=== PATIENT | female | born 1985 | race Caucasian/White ===

== ENCOUNTER 2018-10-30 11:50 | Outpatient (CLI) | payer OTHER | END 2018-10-30 11:51 | disposition home or self-care (01) | LOC: LAB 11:50 | PROVIDERS: ATTEND Obstetrics & Gynecology | DX: Z01.812 Encounter for preprocedural laboratory examination (principal); N94.6 Dysmenorrhea, unspecified; N94.10 Unspecified dyspareunia ==

== ENCOUNTER 2018-11-01 06:13 | Inpatient (IN) | payer OTHER ==
[2018-10-30 12:16] LABS: BASOPHILS # (AUTO) 0.1 10^3/uL (0.0-0.1); BASOPHILS % (AUTO) 0.8 %; EOSINOPHILS # (AUTO) 0.3 10^3/uL (0.0-0.7); EOSINOPHILS % (AUTO) 5.2 %; HGB - HEMOGLOBIN 14.2 g/dL (12.0-16.0); LYMPHOCYTES # (AUTO) 1.8 10^3/uL (1.5-3.5); LYMPHOCYTES % (AUTO) 30.8 %; MEAN CORPUSCULAR HEMOGLOBIN 28.6 pg (27.0-31.0); MEAN CORPUSCULAR HGB CONC 34.3 g/dL (32.0-36.0); MEAN CORPUSCULAR VOLUME 83.3 fL (81.0-99.0); MEAN PLATELET VOLUME 7.8 fL (7.9-10.8); MONOCYTES # (AUTO) 0.6 10^3/uL (0.0-1.0); MONOCYTES % (AUTO) 9.5 %; NEUTROPHILS # (AUTO) 3.2 10^3/uL (1.5-6.6); NEUTROPHILS % (AUTO) 53.7 %; PLT - PLATELET COUNT 237 10^3/uL (130-450); RED BLOOD COUNT 4.97 10^6/uL (4.20-5.40); RED CELL DISTRIBUTION WIDTH 13.3 % (12.0-15.0); WHITE BLOOD COUNT 5.9 x10^3/uL (4.8-10.8)
[2018-10-30 12:18] LABS: BILIRUBIN,URINE NEGATIVE (NEGATIVE); GLUCOSE, URINE (UA) NEGATIVE (NEGATIVE); KETONES,URINE (UA) NEGATIVE (NEGATIVE); LEUKOCYTE ESTERASE, URINE NEGATIVE (NEGATIVE); NITRITE,URINE NEGATIVE (NEGATIVE); OCCULT BLOOD,URINE TRACE-INTA (NEGATIVE); PROTEIN,URINE NEGATIVE (NEGATIVE); UROBILINOGEN,URINE 0.2 (NORMAL) E.U./dL (NORMAL)
[2018-10-30 12:21] LABS: CLARITY,URINE CLEAR (CLEAR); HCG UR QUAL NEGATIVE
[2018-10-30 12:28] LABS: CALCIUM 9.6 mg/dL (8.5-10.3); CREATININE 0.7 mg/dL (0.4-1.0)
[2018-11-01] MEDS ORDERED: LACTATED RINGERS 1,000 ML IV ONE ×2 (06:33→10:48)
--- NOTE | 2018-11-01 07:13 | ANESTHESIA ---
Pre-Anesthesia VS, & Labs - Diagnosis uterine bleeding, dysmenorrhea, dyspareunia - Procedure laparoscopic assist vaginal hysterectomy Vital Signs: Temp Pulse Resp BP Pulse Ox 37.1 C 89 12 134/94 H 97 11/01/18 06:34 11/01/18 06:34 11/01/18 06:34 11/01/18 06:34 11/01/18 06:34 Height 5 ft 6 in Weight (kg) 107.2 kg - NPO >8 hours - Is Patient ?: Waiver signed - Lab Results Current Lab Results: Laboratory Tests 10/30/18 12:05: Blood Type O POSITIVE, Antibody Screen NEGATIVE 10/30/18 12:05: WBC 5.9, RBC 4.97, Hgb 14.2, Hct 41.4, MCV 83.3, MCH 28.6, MCHC 34.3, RDW 13.3, Plt Count 237, MPV 7.8 L, Neut # (Auto) 3.2, Lymph # (Auto) 1.8, Divide # (Auto) 0.6, Eos # (Auto) 0.3, Baso # (Auto) 0.1, Absolute Nucleated RBC 0.00, Nucleated RBC % 0.0 10/30/18 12:05: Sodium 138, Potassium 3.7, Chloride 107, Carbon Dioxide 25, Anion Gap 6.0, BUN 15, Creatinine 0.7, Estimated GFR (MDRD) 97, Glucose 86, Calcium 9.6 Lab results reviewed: Yes Fish Bones: 10/30/18 12:05 10/30/18 12:05 Home Medications and Allergies Allergies/Adverse Reactions: Allergies Allergy/AdvReac Type Severity Reaction Status Date / Time amoxicillin Allergy Intermediate Rash Verified 10/29/18 12:44 Penicillins Allergy Rash Verified 10/29/18 12:44 Anes History & Medical History - Anesthetic History Anesthesia Complications: reports: No previous complications Family history of Anesthesia Complications: Denies Family history of Malignant Hyperthermia: Denies - Medical History Cardiovascular: reports: None Pulmonary: reports: None Gastrointestinal: reports: None Urinary: reports: None Musculoskeletal: reports: None Endocrine/Autoimmune: reports: None Skin: reports: None - Surgical History Eyes Ears Nose Throat (EENT): Tonsil/Adenoidectomy Gynecologic: section Exam General: Alert, Oriented x3, Cooperative, No acute distress Dental: WNL Mouth Openin Fingerbreadth Neck Mobility: Normal Mallampati classification: II Thyromental Distance: greater than 6 cm Respiratory: Lungs clear, Normal breath sounds, No respiratory distress, No accessory muscle use Cardiovascular: Regular rate, Normal S1, Normal S2, No murmurs Mental/Cognitive Status: Alert/Oriented X3, Normal for patient Plan Anesthesia Type: General Consent for Procedure(s) Verified and Reviewed: Yes Code Status: Attempt Resuscitation ASA classification: 1-Healthy patient Is this case an emergency?: No
[2018-11-01] MEDS ORDERED: ceFAZolin 2 GM/50 ML 2 GM/50 ML BAG IV ONE ×2 (07:36→08:42)
[2018-11-01] MEDS ORDERED: BUPIVACAINE 0.25% PF 10 ML VIAL ONE (07:40)
[2018-11-01] MEDS ORDERED: LIDOCAINE 1%-EPI 1:100000 30 ML MDV ONE (07:40)
[2018-11-01] MEDS ORDERED: BUPIVACAINE 0.25% PF 30 ML VIAL SUBQ ONE ×2 (08:30)
[2018-11-01] MEDS ORDERED: PROPOFOL 200 MG/20 ML VIAL IVP ONE (08:42)
[2018-11-01] MEDS ORDERED: LIDOCAINE-MPF 2% 5 ML VIAL IM ONE (08:42)
[2018-11-01] MEDS ORDERED: fentaNYL 250 MCG/5 ML VIAL IVP ONE (08:42)
[2018-11-01] MEDS ORDERED: ACETAMINOPHEN 1,000 MG/100 ML 100 ML IV ONE (08:42)
[2018-11-01] MEDS ORDERED: ONDANSETRON 4 MG/2 ML VIAL IVP ONE (08:42)
[2018-11-01] MEDS ORDERED: KETOROLAC 30 MG/ML VIAL IVP ONE (08:42)
[2018-11-01] MEDS ORDERED: ROCURONIUM 50 MG/5 ML VIAL IVP ONE (08:42)
[2018-11-01] MEDS ORDERED: LIDOCAINE MPF 1%-EPI 1:200000 30 ML VIAL SUBQ ONE ×2 (08:50)
[2018-11-01] MEDS ORDERED: ONDANSETRON 4 MG/2 ML VIAL IVP PRN (10:41)
[2018-11-01] MEDS ORDERED: SIMETHICONE CHEW 80 MG TABLET PO PRN (10:41)
--- NOTE | 2018-11-01 10:51 | OPERATIVE REPORT ---
Operative Report - General Admit Date: 11/01/18 Procedure Date: 11/01/18 Planned Procedure: Laparoscopic-assisted vaginal hysterectomy, bilateral salpingectomies Pre-Op Diagnosis: Abnormal uterine bleeding, dysmenorrhea, dyspareunia Procedure Performed: Laparoscopic-assisted vaginal hysterectomy, left salpingectomy, fulguration of endometriosis Post Op Diagnosis: Endometriosis - Procedure Note Primary Surgeon: Dr. Augusta Mccauley Secondary Surgeon: Dr. Scotty Govea Anesthesia Provider: Dr. Duane Hoyos Anesthesia Technique: General ET tube, Local Pathology: Uterus, cervix, and left fallopian tube IV Fluids (mL): 800 Estimated Blood Loss (mL): 100 Urine Output (mL): 175 Drain/Tube Type: Other (Espinoza catheter) Complications: None - Other Other Information/Narrative: Indication: The patient is a 33-year-old 3 para 2 abortus 1 female here for hysterectomy for definitive surgical management of bothersome abnormal uterine bleeding, dysmenorrhea, and dyspareunia. The couple is using vasectomy for contraception and have completed their childbearing. She has had heavy, painful periods for the last 1-1/2 years. Prior to that, her periods were 4-5 days along with normal flow and minimal cramping. Her periods are still regular and monthly, but now last from 7-10 days; and for the first 5 days she needs to change both a tampon and pad every 30 minutes, including 3-4 times at night. Bleeding produces large clots and severe cramps, for which nonsteroidal anti-i nflammatory medications are not much help. She also gets intermittent cramping outside of her cycle, which is not associated with spotting. Also, for the last year and a half, sex has been painful from beginning to end and causes cramps for several days afterwards. She has no history of abuse, and she feels safe at home. She had an endometrial biopsy, that was benign, and an ultrasound, which was normal. She has had a negative experience with hormonal contraception in the past and does not wish to go that route for treatment. She feels like hysterectomy is her best management option. The alternatives for mgmt of her symptoms were discussed, and the patient desired to proceed with a hysterectomy. Risks, benefits, limitations, alternatives, and expectations or surgery were discussed, and the consent was reviewed and signed prior to the date of surgery. Findings: Exam under anesthesia: Uterus anteverted and mildly fixed within the pelvic anteriorly, 7 wks size, with no adnexal masses palpable. Surgery: Mildly dense bladder adhesions present at the anterior lower uterine segments (site of incision). No other pelvic adhesions were noted. Dark endometriosis lesions noted throughout the pelvis - 3 at the left lower quadrant, anterior peritoneum; several within the cul-de-sac, one within the right ovarian fossa, and one on the right ovarian vessels. At the completion of the surgery, the ureters were visualized and appeared clear of the dissection. They peristalsed bilaterally. The appendix was visualized and appeared normal. Procedure: The patient was taken to the operating room, where general endotracheal anesthesia was administered without difficulty. She was then positioned with her lower extremities in yellow-fin stirrups. Exam under anesthesia was then performed with the findings as noted above. Perineum, vagina, and abdomen were then prepped and draped in sterile fashion, and a espinoza catheter was placed. Time out was then performed. Attention was first turned to placement of a uterine manipulator. A sterile bivalve speculum was inserted, and the cervix grasped with a single-toothed tenaculum. The cervix was then dilated until a HUMI uterine manipulator could be placed and balloon inflated. The tenaculum and speculum were then removed. Attention was then turned to the laparoscopy. 0.25% Marcaine, plain, was injected infraumbilically, then a 7-mm vertical skin incision made. A Verrees needle was then inserted through the anterior layers of the abdominal wall with saline drop test suggesting intraperitoneal placement. Carbon dioxide gas insufflation was then performed with appropriate opening pressures noted. Once 2 L of gas was instilled, a 0-degree, 5 mm laparoscope was inserted into a 5 mm trocar and passed through the anterior layers of the abdominal wall using Optiview technique. The abdomen was visualized, then 2 additional ports placed at the right and left lower quadrants, first instilling local anesthetic then placing 5 mm ports. The patient was placed into Trendelenberg and bowel swept out of the cul-de-sac. The left distal fallopian tube was grasped and pulled anteriorly while the left tubo-ovarian ligament was cross-clamped, cauterized, and cut using the PlasmaKinetic. This incision was then extended medially across the mesosalpinx until the cornual region was reached. The left round ligament was then cross- clamped, cauterized, and cut, then the anterior leaf of the broad ligament undermined, cauterized, and cut starting the bladder flap dissection on the left. This dissection was carried until the midline lower uterine segment, where the bladder adhesion became denser. The left utero-ovarian pedicle was then cross-clamped, cauterized, and cut, then this incision extended into the peritoneum inferiorly. The left uterine vessels were then skeletonized, cross- clamped, cauterized, and cut. Attention was then turned to the right side, where the dissection was completed in similar fashion. Here the right fallopian tube was already surgically-absent, so attention directed to the right round ligament then right utero--ovarian vessels. The bladder flap was extended to the midline, where density increased. The right uterine vessels were cauterized and cut. The bladder adhesions dissected with bovie cautery and gentle downward traction. Any bleeding was controlled with cautery. The trocars were left in situ, as well as the majority of the gas, while attention was turned to the vaginal portion of the case. The lower extremities were elevated to high lithotomy, the uterine manipulator was removed, and a sterile weighted speculum placed. The cervix was grasped with a double-toothed tenaculum, then 1% Lidocaine with epinephrine was injected circumferentially for hemostasis. A circumferential incision was then made with cauterization. The posterior cul-de-sac was then entered sharply, and an Auvard speculum placed after tagging the midline posterior peritoneum. The left, then right, uterosacral ligament was cross-clamped, cut, and suture-ligated with 0 vicryl. These were tagged for later identification. The anterior cul-de-sac was then entered bluntly using a moist sponge and the jumpbasting machine operator's finger. One additional pedicle was secured on each side, then the uterus, cervix, and tubes removed vaginally. The peritoneum was then closed with a purse-string suture of 0 vicryl, then the vaginal cuff was irrigated with sterile saline. The vaginal mucosa was then closed with serial figure of eight sutures of 0 vicryl. A small tag of right vaginal tissue was caught in the cuff closure then sharply freed. Two figure of eight sutures of 0 vicryl were placed to achieve hemostasis at the right vaginal wall. A sponge stick was placed, and attention returned to laparoscopy to visualize the cuff for bleeding. The lower extremities were replaced into low lithotomy. Gas was instilled again, and the dissection sites noted to have only minimal bleeding, none of which required cauterization. Copious irrigation was performed. The ureters were visualized and peristalsed. The remaining endometriosis lesions at the left lower quadrant, cul-de-sac, and right ovarian fossa were fulgurated using cauterization. At this point the procedure was deemed complete. The gas was allowed to escape, and the trocars removed. The incisions were then closed with 4-0 monocryl in a subcuticular fashion followed by Dermabond. The sponge stick was removed from the vagina. The patient was then replaced supine, awakened, extubated, and transferred to the PACU in stable condition. There were no complications. Sponge, lap, and needle count were correct x 3.
[2018-11-01] MEDS ORDERED: MEPERIDINE 50 MG/ML VIAL ONE (10:55)
[2018-11-01] MEDS: KETOROLAC 30 MG/ML VIAL IVP SCH ×3 (11:55→22:02)
[2018-11-01] MEDS: LACTATED RINGERS 1,000 ML IV SCH ×2 (11:56→18:51)
[2018-11-01] MEDS ORDERED: DOCUSATE SODIUM 100 MG CAPSULE PO SCH (12:00)
[2018-11-01] MEDS: MORPHINE 10 MG/ML VIAL IVP PRN ×2 (12:46→16:12)
[2018-11-01] MEDS ORDERED: SODIUM CHLORIDE FLUSH 0.9% 10 ML SYRINGE ONE (16:09)
[2018-11-01] MEDS ORDERED: METOCLOPRAMIDE 10 MG/2 ML VIAL IVP PRN (16:42)
[2018-11-01] MEDS: DOCUSATE SODIUM 100 MG CAPSULE PO SCH (22:02)
[2018-11-02] MEDS: oxyCODONE 5 MG TABLET PO PRN ×2 (04:21→10:01)
[2018-11-02] MEDS: KETOROLAC 30 MG/ML VIAL IVP SCH (04:25)
[2018-11-02 05:39] LABS: BASOPHILS % (AUTO) 0.3 %; EOSINOPHILS # (AUTO) 0.1 10^3/uL (0.0-0.7); EOSINOPHILS % (AUTO) 1.8 %; HGB - HEMOGLOBIN 12.5 g/dL (12.0-16.0); LYMPHOCYTES # (AUTO) 1.6 10^3/uL (1.5-3.5); LYMPHOCYTES % (AUTO) 23.7 %; MEAN CORPUSCULAR HEMOGLOBIN 28.8 pg (27.0-31.0); MEAN CORPUSCULAR HGB CONC 33.5 g/dL (32.0-36.0); MEAN PLATELET VOLUME 7.5 fL (7.9-10.8); MONOCYTES # (AUTO) 0.5 10^3/uL (0.0-1.0); MONOCYTES % (AUTO) 7.9 %; NEUTROPHILS # (AUTO) 4.6 10^3/uL (1.5-6.6); NEUTROPHILS % (AUTO) 66.3 %; PLT - PLATELET COUNT 203 10^3/uL (130-450); RED BLOOD COUNT 4.34 10^6/uL (4.20-5.40); RED CELL DISTRIBUTION WIDTH 13.6 % (12.0-15.0); WHITE BLOOD COUNT 6.9 x10^3/uL (4.8-10.8)
[2018-11-02 07:47] VITALS: BP 116/69
--- NOTE | 2018-11-02 08:01 | DISCHARGE SUMMARY ---
"Discharge Summary Admit Date: 11/01/18 Discharge Date: 11/02/18 Discharging Provider: Dr. Augusta Mccauley Code Status: Attempt Resuscitation Condition at Discharge: Good Discharge Disposition: 01 Home, Self Care - DIAGNOSES Admission Diagnoses: Abnormal uterine bleeding, dysmenorrhea, dyspareunia Discharge Diagnoses with Status of Each Condition: ADELE, endometriosis, s/p hysterectomy - HPI History of Present Illness: See admission H&P - CONSULTS | PROCEDURES Procedures: Laparoscopic-assisted vaginal hysterectomy, left salpingectomy, fulguration of endometriosis - HOSPITAL COURSE Hospital Course: After an uncomplicated surgery, the patient was admitted to the postanesthesia care unit and then the villa in stable condition. Overnight, she had normal and stable vital signs, and her pain was well controlled with Toradol and morphine. However, she had notable nausea and vomiting. This was later controlled with Zofran and Reglan. Her Cao catheter was removed on postoperative day #1, and she met her due to void without any problem. On postoperative day #1, she was ambulating, tolerating regular diet, controlling pain with oral pain medication, and feeling ready for discharge. Her vital signs were normal and stable during her hospital stay. - ALLERGIES Allergies/Adverse Reactions: Allergies Allergy/AdvReac Type Severity Reaction Status Date / Time amoxicillin Allergy Intermediate Rash Verified 10/29/18 12:44 Penicillins Allergy Rash Verified 10/29/18 12:44 - MEDICATIONS Home Medications: Ambulatory Orders Medication Instructions Recorded Confirmed Aspirin/Acetaminophen/Caffeine 1 each PO BID 11/01/18 11/01/18 [Excedrin Migraine Caplet] Home Medications Other | Comments: Patient has discharge postop medications already: Percocet 1-2 tabs po q 6 hrs prn pain Motrin 800 mg po q 8 hrs prn pain Surfak 1 tab po bid prn constipation - PHYSICAL EXAM AT DISCHARGE General Appearance: positive: No acute distress, Alert Eyes Bilateral: positive: Normal inspection Respiratory: positive: No respiratory distress, Breath sounds nml Cardiovascular: positive: Regular rate & rhythm, No murmur Abdomen: positive: Nml bowel sounds, No distention, Tenderness (Appropriate tenderness present), Other (Incisions: LSC x 3 well-approximated with no separation, discharge, or induration. 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
--- NOTE | 2018-11-02 08:05 | Discharge Plan ---
Discharge Plan Disposition: 01 Home, Self Care Condition: Good Diet: Regular Activity Restrictions: See handout Shower Restrictions: No Driving Restrictions: Yes (OK to drive once pain-free off narcotic pain meds) No Smoking: If you smoke, Please STOP! Call for help. Follow-up with: Femi Huber MD [Primary Care Provider] -
[2018-11-02] MEDS: DOCUSATE SODIUM 100 MG CAPSULE PO SCH (10:01)
== END 2018-11-02 10:54 | disposition home or self-care (01) | DRG 743 ==
LOC: MS2 06:13
PROVIDERS: ADMIT Obstetrics & Gynecology; ATTEND Obstetrics & Gynecology
PROC: 0U594ZZ Destruction of Uterus, Percutaneous Endoscopic Approach (ICD-10-PCS; 2018-11-01)
PROC: 0U5F4ZZ Destruction of Cul-de-sac, Percutaneous Endoscopic Approach (ICD-10-PCS; 2018-11-01)
PROC: 0U504ZZ Destruction of Right Ovary, Percutaneous Endoscopic Approach (ICD-10-PCS; 2018-11-01)
PROC: 0UT6FZZ Resection of Left Fallopian Tube, Via Natural or Artificial Opening With Percutaneous Endoscopic Assistance (ICD-10-PCS; principal; 2018-11-01 07:30)
DX: N80.3 Endometriosis of pelvic peritoneum (principal); N80.1 Endometriosis of ovary; Z88.0 Allergy status to penicillin; Z90.79 Acquired absence of other genital organ(s); Z79.82 Long term (current) use of aspirin
CPT/HCPCS: 36415; 80048; 81001; 81003; 81025; 85025; 86850; 86900; 86901

== ENCOUNTER 2019-12-18 21:16 | Emergency (ER) | payer OTHER ==
[2019-12-18 21:39] LABS: BILIRUBIN,URINE NEGATIVE (NEGATIVE); GLUCOSE, URINE (UA) NEGATIVE (NEGATIVE); KETONES,URINE (UA) NEGATIVE (NEGATIVE); LEUKOCYTE ESTERASE, URINE TRACE (NEGATIVE); NITRITE,URINE NEGATIVE (NEGATIVE); OCCULT BLOOD,URINE LARGE (NEGATIVE); PROTEIN,URINE NEGATIVE (NEGATIVE); UROBILINOGEN,URINE 0.2 (NORMAL) E.U./dL (NORMAL)
[2019-12-18 21:40] LABS: CLARITY,URINE HAZY (CLEAR)
[2019-12-18 21:41] LABS: HCG UR QUAL NEGATIVE
[2019-12-18 21:49] LABS: BACTERIA,URINE None Seen /HPF (None Seen); SQUAMOUS EPITHELIAL CELL,UR NONE SEEN (<= Few)
--- NOTE | 2019-12-18 22:29 | ED Physician Documentation ---
PD HPI CHEST PAIN - Stated complaint Stated Complaint: BK/ABD PX - Chief complaint Chief Complaint: Abd Pain - Additional information Additional information: Patient comes emergency department complaining of left flank pain that started earlier today and has been coming on and off throughout the day. Patient states that she noticed cloudy urine yesterday, but otherwise, no urinary abnormalities. No dysuria or frequency. No gross hematuria. Patient denies any fevers or chills. No nausea or vomiting. The patient states that she had a hysterectomy a year ago and does not have her fallopian tubes, either. She states she does have both of her ovaries. The patient states she has not felt ill. She has no known history of kidney stones. She states that she is otherwise fairly healthy. No other complaints at this time. Review of Systems Ten Systems: 10 systems reviewed and negative Constitutional: reports: Reviewed and negative Eyes: reports: Reviewed and negative Ears: reports: Reviewed and negative Nose: reports: Reviewed and negative Throat: reports: Reviewed and negative Cardiac: reports: Reviewed and negative Respiratory: reports: Reviewed and negative GI: reports: Abdominal Pain : reports: Reviewed and negative Skin: reports: Reviewed and negative Musculoskeletal: reports: Back pain Neurologic: reports: Reviewed and negative Psychiatric: reports: Reviewed and negative Endocrine: reports: Reviewed and negative Immunocompromised: reports: Reviewed and negative PD PAST MEDICAL HISTORY - Past Medical History Past Medical History: Yes Cardiovascular: None Respiratory: None Neuro: Migraines Endocrine/Autoimmune: None GI: None 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 : None HEENT: None Psych: None Musculoskeletal: None Derm: None - Past Surgical History Past Surgical History: Yes /VACUUM DRIER TENDER: section, Hysterectomy, Other HEENT: Tonsil/Adenoidectomy - Present Medications Home Medications: Ambulatory Orders Medication Instructions Recorded Confirmed Aspirin/Acetaminophen/Caffeine 1 each PO BID 11/01/18 11/01/18 [Excedrin Migraine Caplet] Hydrocodone/Acetaminophen 1 - 2 each PO Q6H PRN #14 tablet 12/18/19 [Hydrocodon-Acetaminophen 5-325] Tamsulosin [Flomax] 0.4 mg PO DAILY #7 capsule 12/18/19 - Allergies Allergies/Adverse Reactions: Allergies Allergy/AdvReac Type Severity Reaction Status Date / Time amoxicillin Allergy Intermediate Rash Verified 12/18/19 21:21 Penicillins Allergy Rash Verified 12/18/19 21:21 - Social History Does the pt smoke?: No Smoking Status: Never smoker Does the pt drink ETOH?: No Does the pt have substance abuse?: No - Immunizations Immunizations are current?: Yes - POLST Patient has POLST: No PD ED PE NORMAL - Vitals Vital signs reviewed: Yes - General General: Alert and oriented X 3, No acute distress - HEENT HEENT: PERRL - Neck Neck: Supple, no meningeal sign - Cardiac Cardiac: RRR, No murmur - Respiratory Respiratory: Clear bilaterally - Abdomen Abdomen: Soft, Non distended, Other (Moderate tenderness left upper quadrant and left flank.) - Back Back: Other (Moderate left CVA tenderness.) - Derm Derm: Warm and dry - Extremities Extremities: No deformity - Neuro Neuro: Alert and oriented X 3 - Psych Psych: Normal mood, Normal affect Results - Vitals Vitals: Vital Signs - 24 hr 12/18/19 12/18/19 21:21 23:14 Temperature 36.5 C 36.9 C Heart Rate 110 H 97 Respiratory 14 16 Rate Blood Pressure 151/99 H 141/96 H O2 Saturation 96 98 Oxygen O2 Source Room air - Labs Labs: Laboratory Tests 12/18/19 21:28 Urine Color YELLOW Urine Clarity HAZY Urine pH 6.0 Ur Specific [place] 1.020 Urine Protein NEGATIVE Urine Glucose (UA) NEGATIVE Urine Ketones NEGATIVE Urine Occult Blood LARGE H Urine Nitrite NEGATIVE Urine Bilirubin NEGATIVE Urine Urobilinogen 0.2 (NORMAL) Ur Leukocyte Esterase TRACE H Urine RBC 11-25 H Urine WBC 0-3 Ur Squamous Epith Cells NONE SEEN Urine Bacteria None Seen Ur Microscopic Review INDICATED Urine Culture Comments INDICATED Urine HCG, Qual NEGATIVE - Rads (name of study) CT KUB Radiology: Final report received, Discussed with rads, EMP read indepedently, See rad report (Radiologist interpretation: Mild left hydronephrosis to the level of an obstructing 6 mm calculus in the proximal ureter; other nonobstructing bilateral renal calculi; Tiny calcified gallstones; mild atelectasis.) PD MEDICAL DECISION MAKING - ED course Complexity details: reviewed old records, reviewed results, re-evaluated patient, considered differential, d/w patient ED course: Patient was worked up with urinalysis, which showed a large amount of blood and mild amount of leukocyte esterase, but otherwise negative. I felt she should be worked up for kidney stone, as well, as her urinalysis was not convincing for infection, particularly one which would cause the degree of symptoms the pt was having, and showed a significant amount of blood. Patient was sent for CT scan of the abdomen and pelvis without contrast. This did show a 6 mm calculus in the left proximal ureter. I discussed with the patient that this will most likely pass on its own, but I have advised her to follow-up with scheduled urology and [place] if symptoms have not improved over the next week. I have given the patient a take-home pack of Vicodin, as well as a prescription for Vicodin and for Flomax. Patient at this time is feeling fairly comfortable and she is stable for discharge home. We have discussed the usual indications for return. Departure - Departure Disposition: Home, Self Care Clinical Impression: Kidney stone Condition: Fair Instructions: ED Stone Renal W Colic Prescriptions: Hydrocodone/Acetaminophen [Hydrocodon-Acetaminophen 5-325] 1 - 2 each PO Q6H PRN #14 tablet PRN Reason: pain Tamsulosin [Flomax] 0.4 mg PO DAILY #7 capsule Comments: Your CT scan shows a 6 mm kidney stone that is passing through your left ureter, the tube that connects the kidney to the bladder. This will most likely pass on its own, but will cause discomfort while it does.If you do not notice improvement in your symptoms or passage of the stone in the next week, please make an appointment to follow-up with urology. Otherwise, most kidney stones at this size will pass on their own, given time. [facility] [place]: [phone] Forms: Activity restrictions Discharge Date/Time: 12/18/19 23:26
--- NOTE | 2019-12-18 22:55 | CT Report ---
Reason: L flank pain, hematuria Procedure Date: 12/18/2019 Accession Number: [id number] / [id number] Procedure: CT - Abdomen/Pelvis WO CPT Code: Final Report FULL RESULT: EXAM: CT ABDOMEN AND PELVIS (CT KUB) EXAM DATE: 12/18/2019 10:35 PM. CLINICAL HISTORY: L flank pain, hematuria. COMPARISONS: None. TECHNIQUE: Routine helical CT imaging was performed through the abdomen and pelvis without intravenous contrast. Lack of intravenous contrast can at times limit scan sensitivity, particularly for the detection of intraparenchymal and vascular pathology. Reconstructions: Coronal and sagittal. In accordance with CT protocol optimization, one or more of the following dose reduction techniques were utilized for this exam: automated exposure control, adjustment of mA and/or KV based on patient size, or use of iterative reconstructive technique. FINDINGS: ABDOMEN: Lung Bases: Incompletely included lower lungs demonstrate scattered atelectasis. Heart size is within normal limits. No basilar effusions. Liver: Unremarkable. Gallbladder/Bile Ducts: Tiny calcified gallstone. Visualized biliary tree is normal caliber. Spleen: Unremarkable. Pancreas: Unremarkable. Adrenal Glands: Unremarkable. Kidneys: Right kidney: No hydronephrosis. 1 mm calculus in the right inferior kidney. Left kidney: A couple of left inferior renal calculi measuring up to 7 mm. Mild left hydronephrosis to the level of an obstructing 6 mm calculus in the proximal ureter. Peritoneum/Mesentery/Bowel: No free fluid, free air, or collection. No intestinal obstruction or inflammation. The appendix is within normal limits. Lymph nodes: No mesenteric, periportal, or retroperitoneal lymphadenopathy. PELVIS: The bladder is unremarkable for the degree of distention. Uterus is absent. No pelvic lymphadenopathy. Retroperitoneum: Abdominal aorta is nonaneurysmal. Bones: No suspicious osseous lesions. Grade 1 anterolisthesis of L5 on S1 with severe degenerative disk disease. IMPRESSION: Obstructing 6 mm calculus in the proximal left ureter. Other nonobstructing bilateral renal calculi. Tiny calcified gallstones. RADIA
[2019-12-18] MEDS ORDERED: HYDROcod/ACET 5/325 Prepack 4 PO STA (23:11)
[2019-12-18 23:15] VITALS: BP 141/96
== END 2019-12-18 23:26 | disposition home or self-care (01) ==
LOC: ED 21:16
DX: N13.2 Hydronephrosis with renal and ureteral calculous obstruction (principal)
CPT/HCPCS: 74176; 81001; 81003; 81025; 87086; 99284

== ENCOUNTER 2020-09-18 17:32 | Emergency (ER) | payer OTHER ==
[2020-09-18 17:57] LABS: BILIRUBIN,URINE NEGATIVE (NEGATIVE); GLUCOSE, URINE (UA) NEGATIVE (NEGATIVE); KETONES,URINE (UA) NEGATIVE (NEGATIVE); LEUKOCYTE ESTERASE, URINE NEGATIVE (NEGATIVE); NITRITE,URINE NEGATIVE (NEGATIVE); OCCULT BLOOD,URINE NEGATIVE (NEGATIVE); PROTEIN,URINE NEGATIVE (NEGATIVE); UROBILINOGEN,URINE 0.2 (NORMAL) E.U./dL (NORMAL)
[2020-09-18 18:02] LABS: CLARITY,URINE CLOUDY (CLEAR)
[2020-09-18 18:05] LABS: BASOPHILS # (AUTO) 0.1 10^3/uL (0.0-0.1); BASOPHILS % (AUTO) 0.8 %; EOSINOPHILS # (AUTO) 0.3 10^3/uL (0.0-0.7); EOSINOPHILS % (AUTO) 3.4 %; HCT - HEMATOCRIT 44.8 % (37.0-47.0); HGB - HEMOGLOBIN 15.3 g/dL (12.0-16.0); LYMPHOCYTES # (AUTO) 2.4 10^3/uL (1.5-3.5); LYMPHOCYTES % (AUTO) 28.9 %; MEAN CORPUSCULAR HEMOGLOBIN 30.1 pg (27.0-31.0); MEAN CORPUSCULAR HGB CONC 34.2 g/dL (32.0-36.0); MEAN CORPUSCULAR VOLUME 88.2 fL (81.0-99.0); MEAN PLATELET VOLUME 9.1 fL (7.9-10.8); MONOCYTES # (AUTO) 0.7 10^3/uL (0.0-1.0); MONOCYTES % (AUTO) 8.4 %; NEUTROPHILS # (AUTO) 4.9 10^3/uL (1.5-6.6); NEUTROPHILS % (AUTO) 58.4 %; PLT - PLATELET COUNT 257 10^3/uL (130-450); RED BLOOD COUNT 5.08 10^6/uL (4.20-5.40); RED CELL DISTRIBUTION WIDTH 11.9 % (12.0-15.0); WHITE BLOOD COUNT 8.5 x10^3/uL (4.8-10.8)
[2020-09-18 18:13] LABS: BACTERIA,URINE Few /HPF (None Seen); RBC,URINE None Seen /HPF (0-5); SQUAMOUS EPITHELIAL CELL,UR MOD Squamous (<= Few); WBC,URINE 0-3 /HPF (0-5)
[2020-09-18 18:14] LABS: AMORPHOUS SEDIMENT,UR Moderate /LPF; MUCUS,URINE Few Strands; YEAST,URINE PRESENT
[2020-09-18 18:16] LABS: ALBUMIN 4.5 g/dL (3.2-5.5); ALBUMIN/GLOBULIN RATIO 1.4 (1.0-2.2); BILIRUBIN,TOTAL 0.5 mg/dL (0.2-1.0); CALCIUM 9.6 mg/dL (8.5-10.3); CREATININE 0.8 mg/dL (0.4-1.0); POTASSIUM 3.4 mmol/L (3.5-5.0); TOTAL PROTEIN 7.7 g/dL (6.7-8.2)
[2020-09-18] MEDS ORDERED: IOVERSOL 320 100 ML VIAL IVP ONE ×2 (18:42→18:55)
--- NOTE | 2020-09-18 18:42 | ED Physician Documentation ---
PD HPI ABD PAIN - Stated complaint Stated Complaint: ABD PX & RIGHT SIDED PX - Chief complaint Chief Complaint: Abd Pain - History obtained from History obtained from: Patient - History of Present Illness Timing - onset: Today Timing - duration: Days (1) Timing - details: Gradual onset Pain level max: 7 Pain level now: 6 Quality: Aching, Pain Location: RLQ Radiation: No: Chest, , Lower back, Left flank, Left shoulder, Right flank, Right shoulder, Upper back Improved by: Other (rest) Worsened by: Moving, Palpation Associated symptoms: Other (has had hysterectomy). No: Fever, Nausea, Vomiting, Hematemesis, Diarrhea, Constipation, Melena, Hematochezia, Dysuria, Hematuria, Vaginal bleeding, Vaginal dc Recently seen: Not recently seen Review of Systems Constitutional: denies: Fever, Chills Respiratory: denies: Cough GI: denies: Nausea, Hematemesis, Bloody / black stool : denies: Dysuria Skin: denies: Rash Musculoskeletal: denies: Neck pain, Back pain Neurologic: denies: Headache PD PAST MEDICAL HISTORY - Past Medical History Past Medical History: Yes Cardiovascular: None Respiratory: None Neuro: Migraines Endocrine/Autoimmune: None GI: None ADMIN DIR: Endometriosis, Ectopic : None HEENT: None Psych: None Musculoskeletal: None Derm: None - Past Surgical History Past Surgical History: Yes /ADMIN DIR: section, Hysterectomy, Other HEENT: Tonsil/Adenoidectomy - Present Medications Home Medications: Ambulatory Orders Medication Instructions Recorded Confirmed Aspirin/Acetaminophen/Caffeine 1 each PO BID PRN 11/01/18 09/18/20 [Excedrin Migraine Caplet] Amitriptyline [Elavil] 25 mg PO HS 09/18/20 09/18/20 - Allergies Allergies/Adverse Reactions: Allergies Allergy/AdvReac Type Severity Reaction Status Date / Time amoxicillin Allergy Intermediate Rash Verified 09/18/20 17:35 Penicillins Allergy Rash Verified 09/18/20 17:35 - Social History Does the pt smoke?: No Smoking Status: Never smoker Does the pt drink ETOH?: No Does the pt have substance abuse?: No - Immunizations Immunizations are current?: Yes - POLST Patient has POLST: No PD ED PE NORMAL - Vitals Vital signs reviewed: Yes - General General: Alert and oriented X 3, No acute distress, Well developed/nourished - HEENT HEENT: Moist mucous membranes - Neck Neck: Supple, no meningeal sign - Cardiac Cardiac: RRR, Strong equal pulses - Respiratory Respiratory: No respiratory distress, Clear bilaterally - Abdomen Abdomen: Soft, Non distended, Other (TTP RLQ at mcburney's point.) - Back Back: No CVA TTP, No spinal TTP - Derm Derm: Warm and dry - Extremities Extremities: No edema - Neuro Neuro: Alert and oriented X 3 - Psych Psych: Normal mood, Normal affect Results - Vitals Vitals: Vital Signs - 24 hr 09/18/20 09/18/20 09/18/20 17:36 18:08 18:09 Temperature 37.1 C Heart Rate 105 H 106 H 100 Respiratory 18 18 16 Rate Blood Pressure 152/91 H 157/93 H 157/93 H O2 Saturation 99 99 100 09/18/20 19:42 Temperature 37.2 C Heart Rate 88 Respiratory 16 Rate Blood Pressure 140/82 H O2 Saturation 100 Oxygen O2 Source Room air - Labs Labs: Laboratory Tests 09/18/20 09/18/20 09/18/20 17:45 17:55 17:55 WBC 8.5 RBC 5.08 Hgb 15.3 Hct 44.8 MCV 88.2 MCH 30.1 MCHC 34.2 RDW 11.9 L Plt Count 257 MPV 9.1 Neut # (Auto) 4.9 Lymph # (Auto) 2.4 [place] # (Auto) 0.7 Eos # (Auto) 0.3 Baso # (Auto) 0.1 Absolute Nucleated RBC 0.00 Nucleated RBC % 0.0 Sodium 143 Potassium 3.4 L Chloride 105 Carbon Dioxide 26 Anion Gap 12.0 BUN 10 Creatinine 0.8 Estimated GFR (MDRD) 82 L Glucose 114 H Calcium 9.6 Total Bilirubin 0.5 AST 30 ALT 42 Alkaline Phosphatase 95 Total Protein 7.7 Albumin 4.5 Globulin 3.2 Albumin/Globulin Ratio 1.4 Lipase 32 Urine Color YELLOW Urine Clarity CLOUDY Urine pH 7.0 Ur Specific [place] 1.020 Urine Protein NEGATIVE Urine Glucose (UA) NEGATIVE Urine Ketones NEGATIVE Urine Occult Blood NEGATIVE Urine Nitrite NEGATIVE Urine Bilirubin NEGATIVE Urine Urobilinogen 0.2 (NORMAL) Ur Leukocyte Esterase NEGATIVE Urine RBC None Seen Urine WBC 0-3 Ur Squamous Epith Cells MOD Squamous H Amorphous Sediment Moderate Urine Bacteria Few Urine Mucus Few Strands Urine Yeast PRESENT Ur Microscopic Review INDICATED Urine Culture Comments NOT INDICATED - Rads (name of study) CT abdomen and pelvis Radiology: Prelim report reviewed, EMP read contemporaneously, See rad report (IMPRESSION: Nonobstructive bilateral sub-5 mm nonobstructive nephrolithiasis. Normal appendix ) PD MEDICAL DECISION MAKING - ED course Complexity details: reviewed results, re-evaluated patient, considered differential, d/w patient ED course: 35-year-old female with abdominal pain. Unclear etiology. We will have her follow-up with her doctor for further care. Pain well controlled in the emergency department. Patient counseled regarding signs and symptoms for which I believe and urgent re-evaluation would be necessary. Patient with good un derstanding of and agreement to plan and is comfortable going home at this time This document was made in part using voice recognition software. While efforts are made to proofread this document, sound alike and grammatical errors may occur. Departure - Departure Disposition: 01 Home, Self Care Clinical Impression: Abdominal pain Qualifiers: Abdominal location: unspecified location Qualified Code(s): R10.9 - Unspecified abdominal pain Condition: Good Instructions: ED Abdominal Pain Unkn Cause Follow-Up: your,doctor in 1 week [Other] Comments: The cause of your symptoms is unclear. There are no significant lab abnormalities, CT scan abnormalities at this time. Your appendix is normal. Return if you worsen. This should improve over the next 24 hours. Discharge Date/Time: 09/18/20 19:44
--- NOTE | 2020-09-18 19:05 | CT Report ---
PROCEDURE: Abdomen/Pelvis W INDICATIONS: RLQ abd pain CONTRAST: IV CONTRAST: Optiray 320 ml: 100 PO CONTRAST: *NO PO CONTRAST TECHNIQUE: After the administration of IV contrast, 5 mm thick sections acquired from the diaphragms to the symp hysis. 5 mm thick coronal and sagittal reformats were acquired. For radiation dose reduction, the f ollowing was used: automated exposure control, adjustment of mA and/or kV according to patient size. COMPARISON: None. FINDINGS: Image quality: Excellent. ABDOMEN: Lung bases: Lung bases are clear. Heart size is normal. Solid organs: Liver and spleen are normal in size and enhancement. Gallbladder unremarkable Biliar y system is non dilated. Pancreas enhances normally. No adrenal nodules. 1 mm right renal calculus. 3 mm left renal calculus. No hydronephrosis. Peritoneum and bowel: Bowel loops demonstrate normal w all thickness and caliber. No free fluid or air. Normal appearance of the appendix Nodes and vessels: No retroperitoneal or mesenteric adenopathy by size criteria. Aorta and inferior vena cava are normal in size. There is broad-based midline laxity of the ventral abdominal wall PELVIS: Genitourinary: Bladder wall thickness is normal. Miscellaneous: No inguinal hernias or adenopathy. Bones: No suspicious bony lesions. No vertebral body compression fractures. IMPRESSION: Nonobstructive bilateral sub-5 mm nonobstructive nephrolithiasis Normal appendix Reviewed by: Fan Lee MD on 09/18/2020 7:04 PM PST Approved by: Fan Lee MD on 09/18/2020 7:04 PM PST Station ID: [id number]
[2020-09-18 19:43] VITALS: BP 140/82
== END 2020-09-18 19:44 | disposition home or self-care (01) ==
LOC: ED 17:32
DX: R10.31 Right lower quadrant pain (principal); N20.0 Calculus of kidney; Z90.710 Acquired absence of both cervix and uterus; Z79.82 Long term (current) use of aspirin
CPT/HCPCS: 36415; 74177; 80053; 81001; 83690; 85025; 99284; Q9967; 81003; 87086

== ENCOUNTER 2020-09-21 10:49 | Emergency (ER) | payer OTHER ==
--- NOTE | 2020-09-21 11:08 | ED Physician Documentation ---
PD HPI ABD PAIN - Stated complaint Stated Complaint: ABD PX - Chief complaint Chief Complaint: Abd Pain - History obtained from History obtained from: Patient - History of Present Illness Timing - onset: How many days ago (3-4) Timing - duration: Days (3-4) Timing - details: Gradual onset, Still present, Waxing and waning Quality: Cramping, Aching, Pain Location: RLQ Radiation: No: Lower back, Right flank Improved by: Laying still. No: Eating, BM Worsened by: Position, Palpation. No: Eating, Moving, Breathing Associated symptoms: Nausea. No: Fever, Vomiting, Diarrhea, Constipation, Dysuria, Chest pain, Vaginal bleeding Similar symptoms before: Has not had sx before Recently seen: Emergency Dept (2 days ago with labs and CT without clear Dx. Has had increased pain now to middle and some to left since prior visit.) Review of Systems Constitutional: denies: Fever, Chills, Myalgias Nose: denies: Rhinorrhea / runny nose, Congestion Throat: denies: Sore throat Cardiac: denies: Chest pain / pressure Respiratory: denies: Cough GI: reports: Abdominal Pain, Nausea. denies: Vomiting, Constipation, Diarrhea : denies: Dysuria, Frequency, Discharge, Vaginal bleeding Skin: denies: Rash, Lesions PD PAST MEDICAL HISTORY - Past Medical History Cardiovascular: None Respiratory: None Neuro: Migraines Endocrine/Autoimmune: None GI: None [employer]: Endometriosis, Ectopic : None HEENT: None Psych: None Musculoskeletal: None Derm: None - Past Surgical History Past Surgical History: Yes /[employer]: section, Hysterectomy, Other HEENT: Tonsil/Adenoidectomy - Present Medications Home Medications: Ambulatory Orders Medication Instructions Recorded Confirmed Aspirin/Acetaminophen/Caffeine 1 each PO BID PRN 11/01/18 09/21/20 [Excedrin Migraine Caplet] Amitriptyline [Elavil] 25 mg PO HS 09/18/20 09/21/20 Docusate Sodium 100Mg Capsule 100 mg PO DAILY #15 capsule 09/21/20 [Colace 100Mg Capsule] HYDROcod/ACETAM 5/325 [[place] 5/325] 1 ea PO Q6H PRN #18 tablet 09/21/20 Naproxen Sodium [Anaprox Ds] 550 mg PO BID #20 tablet 09/21/20 - Allergies Allergies/Adverse Reactions: Allergies Allergy/AdvReac Type Severity Reaction Status Date / Time amoxicillin Allergy Intermediate Rash Verified 09/21/20 10:54 Penicillins Allergy Rash Verified 09/21/20 10:54 - Social History Does the pt smoke?: No Smoking Status: Never smoker Does the pt drink ETOH?: No Does the pt have substance abuse?: No - Immunizations Immunizations are current?: Yes - POLST Patient has POLST: No PD ED PE NORMAL - Vitals Vital signs reviewed: Yes - General General: Alert and oriented X 3, No acute distress, Well developed/nourished - Neck Neck: Supple, no meningeal sign, No adenopathy - Cardiac Cardiac: RRR, No murmur - Respiratory Respiratory: Clear bilaterally - Abdomen Abdomen: Normal bowel sounds, Soft, Non distended, No organomegaly, Other (tender RLQ and suprapubic with local guarding. No percussion nor rebound tenderness. ) - Female Female : Deferred - Rectal Rectal: Deferred - Back Back: No CVA TTP - Derm Derm: Normal color, Warm and dry - Neuro Neuro: Alert and oriented X 3, No motor deficit, Normal speech Results - Vitals Vitals: Vital Signs - 24 hr 09/21/20 09/21/20 09/21/20 10:54 11:51 11:52 Temperature 36.7 C Heart Rate 92 104 H Respiratory 16 20 Rate Blood Pressure 147/92 H 141/100 H O2 Saturation 98 97 09/21/20 13:01 Temperature Heart Rate 99 Respiratory 18 Rate Blood Pressure 133/96 H O2 Saturation 96 Oxygen O2 Source Room air - Labs Labs: Laboratory Tests 09/21/20 09/21/20 09/21/20 11:34 11:34 12:55 WBC 6.8 RBC 4.89 Hgb 14.9 Hct 43.3 MCV 88.5 MCH 30.5 MCHC 34.4 RDW 11.9 L Plt Count 212 MPV 9.1 Neut # (Auto) 4.4 Lymph # (Auto) 1.6 [place] # (Auto) 0.5 Eos # (Auto) 0.2 Baso # (Auto) 0.1 Absolute Nucleated RBC 0.00 Nucleated RBC % 0.0 Sodium 139 Potassium 4.2 Chloride 106 Carbon Dioxide 25 Anion Gap 8.0 BUN 11 Creatinine 0.8 Estimated GFR (MDRD) 82 L Glucose 97 Calcium 9.5 Total Bilirubin 0.9 AST 23 ALT 37 Alkaline Phosphatase 87 Total Protein 7.9 Albumin 4.3 Globulin 3.6 Albumin/Globulin Ratio 1.2 Lipase 27 Urine Color YELLOW Urine Clarity HAZY Urine pH 7.0 Ur Specific [place] 1.020 Urine Protein NEGATIVE Urine Glucose (UA) NEGATIVE Urine Ketones NEGATIVE Urine Occult Blood NEGATIVE Urine Nitrite NEGATIVE Urine Bilirubin NEGATIVE Urine Urobilinogen 0.2 (NORMAL) Ur Leukocyte Esterase MODERATE H Urine RBC 6-10 H Urine WBC 6-10 H Ur Squamous Epith Cells MANY Squamous H Urine Bacteria Many H Urine Mucus Few Strands Ur Microscopic Review INDICATED Urine Culture Comments NOT INDICATED - Rads (name of study) pelvic U/S Radiology: Prelim report reviewed (normal right ovary), See rad report PD MEDICAL DECISION MAKING - ED course Complexity details: reviewed old records, reviewed results, re-evaluated patient (shared decision to hold on repeat CT and try nsaids/pain meds with recheck if not improved another couple days. ), considered differential, d/w patient Departure - Departure Disposition: 01 Home, Self Care Clinical Impression: Right lower quadrant abdominal pain Condition: Stable Record reviewed to determine appropriate education?: Yes Instructions: ED Abdominal Pain Unkn Cause Follow-Up: [facility]SA[facility] Harris [Provider Group] Femi Butts MD [Provider Admit Priv/Credential] - Prescriptions: Naproxen Sodium [Anaprox Ds] 550 mg PO BID #20 tablet Docusate Sodium 100Mg Capsule [Colace 100Mg Capsule] 100 mg PO DAILY #15 capsule HYDROcod/ACETAM 5/325 [[place] 5/325] 1 ea PO Q6H PRN #18 tablet PRN Reason: Pain Comments: Stay well-hydrated. Use naproxen anti-inflammatory twice daily with food. To that add Tylenol or hydrocodone as needed for pain. Daily stool softener docusate for the next week or so. Recheck with your primary care or surgery if the pain is not resolved over the next several days for any further potential work-up such as repeat scans or colonoscopy. Otherwise if your pain improves then likely this may have been some adhesions or scar tissue or such. Return to the ER if worsening symptoms and particularly any vomiting fever bloody stool or other concerns. Discharge Date/Time: 09/21/20 13:36
[2020-09-21] MEDS ORDERED: SODIUM CHLORIDE 0.9% 1,000 ML IV STA (11:24)
[2020-09-21] MEDS ORDERED: HYDROmorphone 1 MG/ML CARPUJECT IVP STA (11:24)
[2020-09-21] MEDS ORDERED: ONDANSETRON 4 MG/2 ML VIAL IVP STA (11:24)
[2020-09-21 11:41] LABS: BASOPHILS # (AUTO) 0.1 10^3/uL (0.0-0.1); BASOPHILS % (AUTO) 0.7 %; EOSINOPHILS # (AUTO) 0.2 10^3/uL (0.0-0.7); EOSINOPHILS % (AUTO) 3.5 %; HGB - HEMOGLOBIN 14.9 g/dL (12.0-16.0); LYMPHOCYTES # (AUTO) 1.6 10^3/uL (1.5-3.5); LYMPHOCYTES % (AUTO) 23.2 %; MEAN CORPUSCULAR HEMOGLOBIN 30.5 pg (27.0-31.0); MEAN CORPUSCULAR HGB CONC 34.4 g/dL (32.0-36.0); MEAN CORPUSCULAR VOLUME 88.5 fL (81.0-99.0); MEAN PLATELET VOLUME 9.1 fL (7.9-10.8); MONOCYTES # (AUTO) 0.5 10^3/uL (0.0-1.0); MONOCYTES % (AUTO) 7.5 %; NEUTROPHILS # (AUTO) 4.4 10^3/uL (1.5-6.6); NEUTROPHILS % (AUTO) 64.8 %; PLT - PLATELET COUNT 212 10^3/uL (130-450); RED BLOOD COUNT 4.89 10^6/uL (4.20-5.40); RED CELL DISTRIBUTION WIDTH 11.9 % (12.0-15.0); WHITE BLOOD COUNT 6.8 x10^3/uL (4.8-10.8)
[2020-09-21 11:51] LABS: ALBUMIN 4.3 g/dL (3.2-5.5); ALBUMIN/GLOBULIN RATIO 1.2 (1.0-2.2); BILIRUBIN,TOTAL 0.9 mg/dL (0.2-1.0); CALCIUM 9.5 mg/dL (8.5-10.3); CREATININE 0.8 mg/dL (0.4-1.0); TOTAL PROTEIN 7.9 g/dL (6.7-8.2)
[2020-09-21 13:01] VITALS: BP 133/96
[2020-09-21 13:02] LABS: BILIRUBIN,URINE NEGATIVE (NEGATIVE); GLUCOSE, URINE (UA) NEGATIVE (NEGATIVE); KETONES,URINE (UA) NEGATIVE (NEGATIVE); LEUKOCYTE ESTERASE, URINE MODERATE (NEGATIVE); NITRITE,URINE NEGATIVE (NEGATIVE); OCCULT BLOOD,URINE NEGATIVE (NEGATIVE); PROTEIN,URINE NEGATIVE (NEGATIVE); UROBILINOGEN,URINE 0.2 (NORMAL) E.U./dL (NORMAL)
[2020-09-21 13:05] LABS: CLARITY,URINE HAZY (CLEAR)
[2020-09-21 13:09] LABS: BACTERIA,URINE Many /HPF (None Seen); MUCUS,URINE Few Strands; SQUAMOUS EPITHELIAL CELL,UR MANY Squamous (<= Few)
--- NOTE | 2020-09-21 13:12 | Ultrasound Report ---
PROCEDURE: Pelvic w/Transvag+Doppler Ltd INDICATIONS: RLQ pelvic/abd pain; s/p hyst, eval ovary TECHNIQUE: Real-time scanning was performed of the pelvic organs, with image documentation. Additional endovagi nal scanning was necessary due to incomplete visualization of the adnexal and endometrial structures by transabdominal scanning. COMPARISON: Correlation is made with the recent prior abdomen and pelvis CT, 09/18/2020. FINDINGS: Transabdominal scanning: No pathologic free abdominal or pelvic fluid. Endovaginal scanning: Uterus: Removed. Ovaries: The right ovary measures 2.5 x 2.4 x 2.7 cm. Less than 12 total cystic follicles can be see n. A right ovarian cyst is seen and measures 2 cm. Given the location of the right ovary, the arteria l waveform is difficult to establish, yet it is believed to be within normal limits. The left ovary is not seen. No adnexal masses are seen on either side. This study is limited by body habitus. IMPRESSION: Limited study demonstrating hysterectomy change and a right ovary that is within normal limits. The left ovary is not seen. No adnexal masses are seen on either side. Reviewed by: Chano Phillips MD on 09/21/2020 12:10 PM [facility] Approved by: Chano Phillips MD on 09/21/2020 12:10 PM [facility] Station ID: [id number]
== END 2020-09-21 13:36 | disposition home or self-care (01) ==
LOC: ED 10:49
DX: R10.31 Right lower quadrant pain (principal)
CPT/HCPCS: 76830; 76856; 80053; 81001; 83690; 85025; 93976; 96374; 96375; 99284; J1170; 81003; 87086

== ENCOUNTER 2023-03-26 14:00 | Outpatient (CLI) | payer OTHER | END 2023-03-26 14:15 | disposition home or self-care (01) | LOC: LAB.N 14:00 | PROVIDERS: ATTEND Specialist | DX: R31.9 Hematuria, unspecified (principal) | CPT/HCPCS: 87086; 87181 ==

== ENCOUNTER 2023-04-23 08:00 | Outpatient (CLI) | payer OTHER ==
[2023-04-23 16:14] LABS: BILIRUBIN,URINE NEGATIVE (NEGATIVE); GLUCOSE, URINE (UA) NEGATIVE (NEGATIVE); KETONES,URINE (UA) NEGATIVE (NEGATIVE); LEUKOCYTE ESTERASE, URINE MODERATE (NEGATIVE); NITRITE,URINE NEGATIVE (NEGATIVE); OCCULT BLOOD,URINE LARGE (NEGATIVE); PH,URINE 5.5 PH (5.0-7.5); PROTEIN,URINE NEGATIVE (NEGATIVE); UROBILINOGEN,URINE 0.2 (NORMAL) E.U./dL (NORMAL)
[2023-04-23 16:23] LABS: CLARITY,URINE CLOUDY (CLEAR)
[2023-04-23 16:33] LABS: BACTERIA,URINE Moderate /HPF (None Seen); RBC,URINE TNTC /HPF (0-5); SQUAMOUS EPITHELIAL CELL,UR MOD Squamous (<= Few)
== END 2023-04-23 23:59 | disposition home or self-care (01) ==
LOC: LAB 08:00
PROVIDERS: ATTEND Urology
DX: R31.9 Hematuria, unspecified (principal)
CPT/HCPCS: 81001; 87086

== ENCOUNTER 2023-05-06 13:15 | Outpatient (CLI) | payer OTHER ==
--- NOTE | 2023-05-06 16:45 | XRAY Report ---
PROCEDURE: Abdomen 1 View (KUB) INDICATIONS: BLOOD IN URINE, HISTORY KIDNEY STONES TECHNIQUE: One view of the abdomen COMPARISON: None. FINDINGS: Calcification projects above the transverse process of the left L4 vertebrae, measuring 0.9 cm. Pelvi c phleboliths. Nonobstructive bowel gas pattern. IMPRESSION: 9 mm calcification projects above the transverse process of the left L4 vertebral body. This could be within bowel or within the left ureter. Consider CT for confirmation. Reviewed by: Kwaku Majano on 05/06/2023 4:43 PM PDT Approved by: Kwaku Majano on 05/06/2023 4:43 PM PDT Station ID: [id number]
== END 2023-05-06 23:59 | disposition home or self-care (01) ==
LOC: DI.WOS 13:15
PROVIDERS: ATTEND Urology
DX: R31.9 Hematuria, unspecified (principal); R93.5 Abnormal findings on diagnostic imaging of other abdominal regions, including retroperitoneum

== ENCOUNTER 2023-10-03 08:55 | Outpatient (CLI) | payer OTHER ==
--- NOTE | 2023-10-03 09:55 | Ultrasound Report ---
PROCEDURE: Renal (Retroperitoneal) INDICATIONS: CALCULUS OF URETER TECHNIQUE: Real-time scanning was performed of the retroperitoneal organs, with image documentation. COMPARISON: CT September 18, 2020 FINDINGS: Kidneys: Kidneys are normal in size. Right kidney measures 11.3 cm long; left kidney measures 11.7 cm long. Right renal cortical thickness is 1.1 cm; left renal cortical thickness is 1.1 cm. Within t he left there is echogenic foci with posterior acoustic shadowing consistent kyphosis measuring 6.6 m m. Mild pelviectasis of the right collecting system without redd hydronephrosis. Bladder: Pre-void bladder volume is 82 mL. Post-void residual is 7 mL. Pre-void images demonstrate no intraluminal masses or stones. On pre-void images, bilateral ureteral jets are noted with color Doppler interrogation. (Of note, ureteral jets may not be detectable in up to 25% of cases due to in sufficient differences in specific gravity between ureteral and bladder urine). Miscellaneous: No free abdominal fluid. IMPRESSION: Right-sided pelviectasis without dilation of the ureter. Obstructive left renal stone. Reviewed by: Neno Winn MD on 10/03/2023 8:54 AM [facility] Approved by: Neno Winn MD on 10/03/2023 8:54 AM [facility] Station ID: [id number]
== END 2023-10-03 08:56 | disposition home or self-care (01) ==
LOC: DI 08:55
PROVIDERS: ATTEND Urology
DX: N20.1 Calculus of ureter (principal)

== ENCOUNTER 2023-10-15 08:00 | Outpatient (CLI) | payer OTHER ==
--- NOTE | 2023-10-15 22:52 | XRAY Report ---
PROCEDURE: Abdomen 1 View (KUB) INDICATIONS: KIDNEY STONES TECHNIQUE: One view of the abdomen acquired. COMPARISON: Abdomen dated 05/06/2023 FINDINGS: Surgical changes and devices: None. Bowel: Bowel gas pattern is nonobstructive. Soft tissues: No suspicious abdominal calcifications. Visualized solid organ contours appear normal in size. Stable left pelvic phleboliths. Previously seen 9 mm calcification adjacent to the left L4 transverse process is not seen on today's study. Bones: No suspicious bony lesions. IMPRESSION: No acute abdominal pathology. No abnormal calcifications identified to suggest presence of urolithiasis. Previously seen 9 mm calci fication adjacent to the left L4 transverse process is not visualized on today's exam. Reviewed by: Deven Hall MD on 10/15/2023 10:51 PM PST Approved by: Deven Hall MD on 10/15/2023 10:51 PM [facility] Station ID: [id number]
== END 2023-10-15 23:59 | disposition home or self-care (01) ==
LOC: DI.WOS 08:00
PROVIDERS: ATTEND Urology
DX: Z87.442 Personal history of urinary calculi (principal)

== ENCOUNTER 2023-10-19 09:46 | Day surgery (SDC) | payer OTHER ==
[2023-10-19] MEDS ORDERED: fentaNYL 100 MCG/2 ML VIAL ONE (10:02)
[2023-10-19] MEDS ORDERED: MIDAZOLAM 2 MG/2 ML VIAL ONE (10:02)
[2023-10-19] MEDS ORDERED: PROPOFOL 200 MG/20 ML VIAL IVP ONE (10:03)
[2023-10-19] MEDS ORDERED: LACTATED RINGERS 1,000 ML IV ONE ×2 (10:03→11:05)
--- NOTE | 2023-10-19 10:11 | ANESTHESIA ---
Pre-Anesthesia VS, & Labs - Diagnosis L kidney stone - Procedure L ureteroscopy, possible laser stone Vital Signs: Temp Pulse Resp BP Pulse Ox O2 Flow Rate 36.0 C L 80 16 132/86 H 97 0 10/19/23 10:09 10/19/23 10:09 10/19/23 10:09 10/19/23 10:09 10/19/23 10:09 10/19/23 10:09 Height: 5 ft 5 in Weight (kg): 113 kg Body Mass Index: 41.4 BMI Classification: Morbidly Obese - NPO >8 hours - Is Patient ?: No - Lab Results Lab results reviewed: Yes Home Medications and Allergies Home Medications: Ambulatory Orders Ibuprofen [Motrin] 600 mg PO Q6H PRN 10/15/23 Acetaminophen [Tylenol] 650 mg PO Q6H PRN 06/04/23 Ibuprofen [Motrin] 600 mg PO Q6H PRN 10/15/23 Allergies/Adverse Reactions: Allergies Allergy/AdvReac Type Severity Reaction Status Date / Time amoxicillin Allergy Intermediate Rash Verified 09/21/20 10:54 Penicillins Allergy Rash Verified 09/21/20 10:54 Anes History & Medical History - Anesthetic History Anesthesia Complications: reports: No previous complications Family history of Anesthesia Complications: Denies Family history of Malignant Hyperthermia: Denies - Medical History Cardiovascular: reports: None Pulmonary: reports: None Gastrointestinal: reports: None Urinary: reports: Kidney stones Neuro: reports: Migraines Musculoskeletal: reports: Chronic back pain Endocrine/Autoimmune: reports: None Blood Disorders: reports: None Skin: reports: None Smoking Status: Never smoker - Surgical History Eyes Ears Nose Throat (EENT): reports: Myringotomy (tubes), Tonsil/Adenoidectomy Urologic: reports: Kidney stents, Ureterolithotomy (stones) Gynecologic: reports: section, Tubal ligation, Hysterectomy, Other Exam General: Alert, Oriented x3, Cooperative Dental: WNL Mouth Openin Fingerbreadth Neck Mobility: Normal Mallampati classification: II Respiratory: Lungs clear, Normal breath sounds, No respiratory distress Cardiovascular: Regular rate Neurological: Normal speech Mental/Cognitive Status: Alert/Oriented X3, Normal for patient Cognitive Status: Within normal limits Plan Anesthesia Type: General Consent for Procedure(s) Verified and Reviewed: Yes Code Status: Attempt Resuscitation ASA classification: 2-Mild systemic disease Is this case an emergency?: No
[2023-10-19] MEDS ORDERED: ONDANSETRON 4 MG/2 ML VIAL IVP PRN ×2 (10:13→10:59)
[2023-10-19] MEDS ORDERED: METOCLOPRAMIDE 10 MG/2 ML VIAL IVP PRN (10:13)
[2023-10-19] MEDS ORDERED: fentaNYL 100 MCG/2 ML VIAL IVP PRN (10:13)
[2023-10-19] MEDS ORDERED: ePHEDrine 50 MG/ML VIAL IVP PRN (10:13)
[2023-10-19] MEDS ORDERED: MORPHINE 2 MG/ML CARPUJECT IVP PRN (10:13)
[2023-10-19] MEDS ORDERED: NALOXONE 0.4 MG/ML VIAL IVP PRN (10:13)
[2023-10-19] MEDS ORDERED: HYDROmorphone 0.5 MG/0.5 ML SYRINGE IVP PRN (10:13)
[2023-10-19] MEDS ORDERED: ATROPINE ABBOJECT 1 MG/10 ML SYRINGE IVP PRN (10:13)
[2023-10-19] MEDS ORDERED: ceFAZolin 2 GM VIAL ONE (10:29)
[2023-10-19] MEDS ORDERED: DEXAMETHASONE 4 MG/ML VIAL ONE (10:44)
[2023-10-19] MEDS ORDERED: ONDANSETRON 4 MG/2 ML VIAL ONE (10:44)
[2023-10-19] MEDS ORDERED: LIDOCAINE 2% URO-JET 5 ML SYRINGE UR ONE (10:49)
[2023-10-19] MEDS ORDERED: iohexoL-240 10 ML VIAL IVP ONE ×2 (10:49→11:00)
[2023-10-19] MEDS ORDERED: KETOROLAC 30 MG/ML VIAL ONE (10:54)
[2023-10-19] MEDS ORDERED: HYDROcod/ACETAM 5/325 MG TABLET PO PRN (10:59)
[2023-10-19] MEDS ORDERED: LACTATED RINGERS 1,000 ML IV SCH (11:00)
--- NOTE | 2023-10-19 11:05 | Discharge Plan ---
Discharge Plan Problem Reviewed?: Yes Disposition: Home, Self Care Condition: Good Prescriptions: Docusate Sodium 100Mg Capsule [Colace 100Mg Capsule] 100 mg PO DAILY #7 cap Tamsulosin [Flomax] 0.4 mg PO DAILY #7 cap HYDROcod/ACETAM 5/325 [[place] 5/325] 1 tab PO Q4H PRN #6 tablet PRN Reason: Pain Diet: Regular Activity Restrictions: No Restrictions Shower Restrictions: No Driving Restrictions: No No Smoking: If you smoke, Please STOP! Call for help. Follow-up with: Diogo Levine MD [Provider Admit Priv/Credential] -
--- NOTE | 2023-10-19 11:10 | OPERATIVE REPORT ---
Operative Report - General Procedure Date: 10/19/23 Planned Procedure: Cystoscopy, left ureteroscopy, possible laser lithotripsy, possible ureteral dilation, possible stent Pre-Op Diagnosis: Left flank pain Procedure Performed: Cystoscopy, left retrograde pyelogram, left ureteroscopy Post Op Diagnosis: Left flank pain - Procedure Note Primary Surgeon: Abner Anesthesia Provider: MARILEE uV Anesthesia Technique: General LMA Pathology: none Estimated Blood Loss (mL): 0 Indications: Left flank pain, possible left renal stone Findings: Normal anatomy, no stones Complications: none - Other Other Information/Narrative: After informed consent was obtained the patient was brought to the OR and laid in the supine position. The patient was anesthetized per anesthesia protocols. She was prepped and draped in the usual sterile fashion. This was in the dorsolithotomy position. A formal timeout was performed reconfirming the patient, procedure and lat erality. A 22 [place] cystoscope was advanced easily into urinary bladder. There were no masses, lesions or other concerns. Her left ureteral orifice was cannulated with a sensor wire and then a 5 [place] open-ended ureteral catheter. 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 A gentle retrograde pyelogram was performed which showed a normal caliber ureter up to her kidney which appeared normal there was no evidence of narrowing. There is no evidence of UPJ obstruction. There were no filling defects and no radiopacities. A sensor wire was then placed again up into the kidney and a flexible ureteroscope advanced over easily into the kidney. The kidney was inspected and full in the upper pole, midpole and lower pole. No stones were seen. No radiopacities were seen. The ureter was cleared under direct visualization and it appeared normal without narrowing or stenosis. The patient had repeatedly asked to avoid a ureteral stent if possible. For this reason we decided to not to leave 1 as minimal manipulation had occurred. She did have some dexamethasone for nausea treatment and I asked for 30 mg of Toradol to be given. Her bladder was emptied and a Uro-Jet was placed. This concluded the procedure and the patient tolerated the procedure well. She was brought to PACU without further incident. All counts were correct. She will go home today with normal medications along with tamsulosin. I will see her back in 6 months to a year for further stone management
--- NOTE | 2023-10-19 11:24 | ANESTHESIA POST OP EVALUATION ---
Anesthesia Post Eval - Post Anesthesia Eval Vitals: Last Vital Signs Temp 36.5 C 10/19/23 11:05 Pulse 80 10/19/23 11:19 Resp 20 10/19/23 11:19 BP 133/82 H 10/19/23 11:19 Pulse Ox 96 10/19/23 11:19 O2 Flow Rate 0 10/19/23 10:09 CV Function Including HR & BP: Stable Pain Control: Satisfactory Nausea & Vomiting: Negative Mental Status: Baseline Respiratory Status: Airway Patent Hydration Status: Satisfactory Anesthesia Complications: None
[2023-10-19 12:03] VITALS: O2SAT 98
[2023-10-19 13:02] VITALS: BP 123/73
--- NOTE | 2023-10-19 19:46 | XRAY Report ---
PROCEDURE: OR C-Arm Procedure INDICATIONS: STENT PLACEMENT FLUORO TIME: 0.2 MIN TECHNIQUE: 17 intraoperative fluoroscopic images of left abdomen and pelvis were obtained. COMPARISON: None. FINDINGS: Intraoperative fluoroscopic images shows contrast opacification of left ureter and left renal collect ing system. Under fluoroscopic guidance, a left-sided ureteral stent is placed. IMPRESSION: Fluoroscopic guidance was provided intraoperatively for left-sided ureteral stent placement performed by the ordering physician. Reviewed by: Jere Gilbert MD on 10/19/2023 7:45 PM PST Approved by: Jere Gilbert MD on 10/19/2023 7:45 PM PST Station ID: [id number]
== END 2023-10-19 09:47 | disposition home or self-care (01) ==
LOC: SDS 09:46
PROVIDERS: ATTEND Urology
DX: R10.9 Unspecified abdominal pain (principal); E66.01 Morbid (severe) obesity due to excess calories; Z68.41 Body mass index [BMI] 40.0-44.9, adult; Z87.442 Personal history of urinary calculi
CPT/HCPCS: 52005; C1758; J7120; Q9966

== ENCOUNTER 2024-04-14 08:00 | Outpatient (CLI) | payer OTHER | END 2024-04-14 23:59 | disposition home or self-care (01) | LOC: LAB 08:00 | PROVIDERS: ATTEND Urology | DX: N20.1 Calculus of ureter (principal) | CPT/HCPCS: 87086; 87181 ==

== ENCOUNTER 2024-04-27 15:57 | Outpatient (CLI) | payer OTHER ==
--- NOTE | 2024-04-28 12:48 | Ultrasound Report ---
PROCEDURE: Renal (Retroperitoneal) INDICATIONS: BLADDER DISORDER TECHNIQUE: Real-time scanning was performed of the retroperitoneal organs, with image documentation. COMPARISON: None. FINDINGS: Kidneys: Kidneys are normal in size. Right kidney measures 11.5 cm long; left kidney measures 12.3 cm long. Right renal cortical thickness is 1.3 cm; left renal cortical thickness is 1.3 cm. No douglas d masses, hydronephrosis, or nephrolithiasis. Bladder: Pre-void bladder volume is 29 mL. The patient unable to void. Pre-void images demonstrate no intraluminal masses or stones. On pre-void images, ureteral jets are noted with color Doppler int errogation. (Of note, ureteral jets may not be detectable in up to 25% of cases due to insufficient differences in specific gravity between ureteral and bladder urine). Miscellaneous: No free abdominal fluid. IMPRESSION: Prevoid volume measures 29 ml. The patient was unable to void at time of exam. Normal renal ultrasound otherwise. Reviewed by: Kwaku Majano MD on 04/28/2024 12:47 PM PDT Approved by: Kwaku Majano MD on 04/28/2024 12:47 PM PDT Station ID: [id number]
== END 2024-04-27 15:58 | disposition home or self-care (01) ==
LOC: DI 15:57
PROVIDERS: ATTEND Nurse Practitioner Family
DX: N32.9 Bladder disorder, unspecified (principal)